=== PATIENT | female | born 1930 | race Two or more races ===

== ENCOUNTER 2016-11-30 14:55 | Inpatient (IN) | payer OTHER ==
[~2016-11-30] VITALS: Ht 152.4 cm; Wt 47.7 kg
[~2016-11-30 14:55] MED LIST: ADV100/50 INH; CLINDAMYCIN HC300 MG PO; COLACE100 MG PO; DETROL LA2 MG PO; LAC PO; LEV500 PO; MEGL; NAMENDA10 M2 PO; PEP20 PO; PRAVACHOL10 MG PO; PROVENTIL0.09 MG/A1 INH; SEROQUEL25 MG PO; SYN75 PO; ZOL50 PO
[2016-11-30 16:03] LABS: UA SPECIFIC GRAVITY 1.025 (1.005-1.035); microscopic required? YES; urine erythrocyte TRACE (NEGATIVE)
[2016-11-30 16:16] LABS: CALCIUM 9.4 mg/dL (8.5-10.1); CARBON DIOXIDE 29.7 mmol/L (21-32); CHLORIDE SERUM 102 mmol/L (98-107); CREATININE SERUM 0.9 mg/dL (0.6-1.0); GLUCOSE SERUM 97 mg/dL (74-106); POTASSIUM SERUM 4.2 mmol/L (3.5-5.1); SODIUM SERUM 139 mmol/L (136-145)
[2016-11-30] MEDS ORDERED: REM15 PO (16:20)
[2016-11-30] MEDS ORDERED: NATURE'S BLEND F1 MG PO (16:20)
[2016-11-30 16:21] LABS: ALBUMIN 3.9 g/dL (3.4-5.0); ALKALINE PHOSPHATASE 74 U/L (46-116); ALT/SGPT 16 U/L (14-59); AST/SGOT 23 U/L (15-37); BILIRUBIN TOTAL 0.37 mg/dL (0.20-1.00); TOTAL PROTEIN, SERUM 7.9 g/dL (6.4-8.2)
[2016-11-30] MEDS ORDERED: QVAR0.08 MG/Ac IH (16:21)
[2016-11-30] MEDS ORDERED: B-1100 MG PO (16:21)
[2016-11-30] MEDS ORDERED: PEPCID20 MG PO (16:21)
[2016-11-30] MEDS ORDERED: VENTOLIN H0.09 MG/A1 IH (16:22)
[2016-11-30] MEDS ORDERED: ZOLOFT100 MG PO (16:22)
[2016-11-30] MEDS ORDERED: XANAX0.25 MG PO (16:22)
[2016-11-30 16:23] LABS: BASOPHIL % 1.7 % (0-2); PLATELET COUNT 292 x10^3mcL (130-400)
[2016-11-30] MEDS ORDERED: APAP500 MG PO (16:23)
[2016-11-30 16:58] LABS: RED CELL DISTRIBUTION WIDTH 14.8 % (11.5-14.5)
[2016-11-30 18:40] VITALS: BP 188/90
[2016-11-30 20:07] VITALS: BP 169/80
[2016-12-01 05:27] VITALS: BP 154/80
[2016-12-01 06:00] VITALS: BP 154/80
[2016-12-01 09:16] VITALS: BP 154/80
== END 2016-12-01 18:49 | disposition home or self-care (01) | DRG 133 ==
LOC: ED 14:55 → MU 17:30
PROVIDERS: Emergency Medicine; ADMIT Internal Medicine Pulmonary Disease
DX: J96.11 Chronic respiratory failure with hypoxia (principal); N39.0 Urinary tract infection, site not specified; F03.90 Unspecified dementia, unspecified severity, without behavioral disturbance, psychotic disturbance, mood disturbance, and anxiety; J44.9 Chronic obstructive pulmonary disease, unspecified; E03.9 Hypothyroidism, unspecified; F32.9 Major depressive disorder, single episode, unspecified; Z99.81 Dependence on supplemental oxygen
CPT/HCPCS: 36600; 83880; J0696; J1650; J2930; J7040; J7613; J7644

== ENCOUNTER 2017-04-29 13:57 | Emergency (ER) | payer OTHER ==
[~2017-04-29] VITALS: Ht 132.1 cm; Wt 41.7 kg
[~2017-04-29 13:57] MED LIST changes: +APAP500 MG PO; +B-1100 MG PO; +NATURE'S BLEND F1 MG PO; +PEPCID20 MG PO; +QVAR0.08 MG/Ac IH; +REM15 PO; +VENTOLIN H0.09 MG/A1 IH; +XANAX0.25 MG PO; +ZOLOFT100 MG PO
[2017-04-29 16:17] LABS: UA SPECIFIC GRAVITY 1.015 (1.005-1.035); microscopic required? YES; urine erythrocyte NEGATIVE (NEGATIVE)
[2017-04-29 17:27] LABS: BASOPHIL % 0.3 % (0-2); PLATELET COUNT 225 x10^3mcL (130-400)
[2017-04-29 17:28] LABS: RED CELL DISTRIBUTION WIDTH 15.1 % (11.5-14.5)
[2017-04-29 17:47] LABS: CARBON DIOXIDE 27.2 mmol/L (21-32); CHLORIDE SERUM 105 mmol/L (98-107); CREATININE SERUM 1.6 mg/dL (0.6-1.0); GLUCOSE SERUM 92 mg/dL (74-106); POTASSIUM SERUM 4.2 mmol/L (3.5-5.1); SODIUM SERUM 142 mmol/L (136-145)
[2017-04-29 17:48] LABS: T3 TOTAL 0.59 ng/mL
[2017-04-29 17:58] LABS: ALBUMIN 3.7 g/dL (3.4-5.0); ALKALINE PHOSPHATASE 72 U/L (46-116); ALT/SGPT 12 U/L (14-59); AST/SGOT 21 U/L (15-37); BILIRUBIN TOTAL 0.5 mg/dL (0.20-1.00); C REACTIVE PROTEIN 1.3 mg/dL (<=0.9); TOTAL PROTEIN, SERUM 7.7 g/dL (6.4-8.2)
[2017-04-29 18:19] LABS: FREE T4 1.13 ng/dL (0.76-1.46); FREE THYROXINE INDEX 2.7 ug/dL (1.4-4.5)
[2017-04-29 18:21] LABS: CK-MB 1.8 ng/mL (0-3.6)
[2017-04-29 18:48] LABS: ERYTHROCYTE SED RATE 29 mm/hr (0-30)
[2017-04-29 20:24] VITALS: BP 184/92
== END 2017-04-29 20:24 | disposition home or self-care (01) ==
LOC: ED 13:57
PROVIDERS: Specialist
DX: N39.0 Urinary tract infection, site not specified (principal); K59.00 Constipation, unspecified; J44.9 Chronic obstructive pulmonary disease, unspecified; F03.90 Unspecified dementia, unspecified severity, without behavioral disturbance, psychotic disturbance, mood disturbance, and anxiety
CPT/HCPCS: 36600; 83880; 84439; J0696

== ENCOUNTER 2017-05-13 16:15 | Emergency (ER) | payer OTHER ==
[2017-05-13 17:21] LABS: microscopic required? NO
[2017-05-13 17:28] LABS: BASOPHIL % 0.4 % (0-2); PLATELET COUNT 321 x10^3mcL (130-400)
[2017-05-13 17:29] LABS: UA SPECIFIC GRAVITY 1.025 (1.005-1.035); urine erythrocyte NEGATIVE (NEGATIVE)
[2017-05-13 17:30] LABS: RED CELL DISTRIBUTION WIDTH 15.5 % (11.5-14.5)
[2017-05-13 17:34] LABS: CALCIUM 9.4 mg/dL (8.5-10.1); CARBON DIOXIDE 31.6 mmol/L (21-32); CHLORIDE SERUM 103 mmol/L (98-107); CREATININE SERUM 1.1 mg/dL (0.6-1.0); GLUCOSE SERUM 114 mg/dL (74-106); POTASSIUM SERUM 3.9 mmol/L (3.5-5.1); SODIUM SERUM 138 mmol/L (136-145)
[2017-05-13 17:39] LABS: ALBUMIN 3.6 g/dL (3.4-5.0); ALKALINE PHOSPHATASE 67 U/L (46-116); ALT/SGPT 15 U/L (14-59); AST/SGOT 20 U/L (15-37); BILIRUBIN TOTAL 0.28 mg/dL (0.20-1.00); LIPASE 145 IU/L (73-393); TOTAL PROTEIN, SERUM 7.5 g/dL (6.4-8.2)
[2017-05-13 19:17] VITALS: BP 140/76
== END 2017-05-13 19:17 | disposition home or self-care (01) ==
LOC: ED 16:15
PROVIDERS: Emergency Medicine
DX: R10.12 Left upper quadrant pain (principal); E86.0 Dehydration; F03.90 Unspecified dementia, unspecified severity, without behavioral disturbance, psychotic disturbance, mood disturbance, and anxiety; J44.9 Chronic obstructive pulmonary disease, unspecified; K59.00 Constipation, unspecified
CPT/HCPCS: 36415

== ENCOUNTER 2018-12-04 18:34 | Emergency (ER) | payer OTHER ==
[~2018-12-04] VITALS: Ht 127 cm; Wt 42.6 kg
[2018-12-04 18:42] VITALS: Ht 127 cm; Wt 42.6 kg
[2018-12-04 20:43] VITALS: BP 128/54
[2018-12-04 20:46] LABS: microscopic required? NO
[2018-12-04 20:46] LABS: CARBON DIOXIDE 27.1 mmol/L (21-32); CHLORIDE SERUM 105 mmol/L (98-107); GLUCOSE SERUM 141 mg/dL (74-106); SODIUM SERUM 140 mmol/L (136-145)
[2018-12-04 20:51] LABS: ALBUMIN 3.8 g/dL (3.4-5.0); ALKALINE PHOSPHATASE 81 U/L (46-116); ALT/SGPT 21 U/L (14-59); AST/SGOT 23 U/L (15-37); BILIRUBIN TOTAL 0.29 mg/dL (0.20-1.00); TOTAL PROTEIN, SERUM 7.3 g/dL (6.4-8.2)
[2018-12-04 21:00] LABS: UA SPECIFIC GRAVITY 1.025 (1.005-1.035); urine erythrocyte NEGATIVE (NEGATIVE)
[2018-12-04 21:03] LABS: CK-MB 1.4 ng/mL (0-3.6)
[2018-12-04 21:11] LABS: BASOPHIL % 0.6 % (0-2); PLATELET COUNT 264 x10^3mcL (130-400); RED CELL DISTRIBUTION WIDTH 14.3 % (11.5-14.5)
== END 2018-12-04 22:22 | disposition home or self-care (01) ==
LOC: ED 18:34
PROVIDERS: Emergency Medicine
DX: R45.1 Restlessness and agitation (principal); F03.90 Unspecified dementia, unspecified severity, without behavioral disturbance, psychotic disturbance, mood disturbance, and anxiety; E86.0 Dehydration; J45.909 Unspecified asthma, uncomplicated; J44.9 Chronic obstructive pulmonary disease, unspecified; E07.9 Disorder of thyroid, unspecified
CPT/HCPCS: J7030; J7620; J7633; Q0092

== ENCOUNTER 2018-12-29 14:27 | Emergency (ER) | payer OTHER ==
[~2018-12-29] VITALS: Ht 144.8 cm; Wt 43.5 kg
[2018-12-29 15:18] VITALS: Ht 144.8 cm; Wt 43.5 kg
[2018-12-29 20:00] VITALS: BP 183/112
== END 2018-12-29 20:00 | disposition home or self-care (01) ==
LOC: ED 14:27
DX: F03.90 Unspecified dementia, unspecified severity, without behavioral disturbance, psychotic disturbance, mood disturbance, and anxiety (principal); M15.0 Primary generalized (osteo)arthritis; T43.505A Adverse effect of unspecified antipsychotics and neuroleptics, initial encounter; Y92.89 Other specified places as the place of occurrence of the external cause
CPT/HCPCS: J1885; J2060; Q0092

== ENCOUNTER 2019-04-26 11:58 | Emergency (ER) | payer OTHER ==
[~2019-04-26] VITALS: Ht 144.8 cm; Wt 40.8 kg
[2019-04-26 12:34] VITALS: Ht 144.8 cm; Wt 40.8 kg
[2019-04-26 13:22] LABS: microscopic required? NO
[2019-04-26 13:27] LABS: BASOPHIL % 0.7 % (0-2); PLATELET COUNT 295 x10^3mcL (130-400); RED CELL DISTRIBUTION WIDTH 14.4 % (11.5-14.5)
[2019-04-26 13:33] LABS: UA SPECIFIC GRAVITY 1.015 (1.005-1.035); urine erythrocyte NEGATIVE (NEGATIVE)
[2019-04-26 13:40] LABS: CALCIUM 8.9 mg/dL (8.5-10.1); CARBON DIOXIDE 30.5 mmol/L (21-32); CHLORIDE SERUM 106 mmol/L (98-107); GLUCOSE SERUM 96 mg/dL (74-106); POTASSIUM SERUM 4.5 mmol/L (3.5-5.1); SODIUM SERUM 142 mmol/L (136-145)
[2019-04-26 13:44] LABS: ALBUMIN 3.5 g/dL (3.4-5.0); ALKALINE PHOSPHATASE 105 U/L (46-116); ALT/SGPT 13 U/L (14-59); AMYLASE 71 U/L (25-115); AST/SGOT 23 U/L (15-37); BILIRUBIN TOTAL 0.4 mg/dL (0.20-1.00); LIPASE 103 IU/L (73-393); TOTAL PROTEIN, SERUM 7.2 g/dL (6.4-8.2)
[2019-04-26 16:34] VITALS: BP 143/62
== END 2019-04-26 16:34 | disposition home or self-care (01) ==
LOC: ED 11:58
PROVIDERS: Emergency Medicine
DX: K59.00 Constipation, unspecified (principal); R10.32 Left lower quadrant pain; J44.9 Chronic obstructive pulmonary disease, unspecified; F03.90 Unspecified dementia, unspecified severity, without behavioral disturbance, psychotic disturbance, mood disturbance, and anxiety; I25.2 Old myocardial infarction
CPT/HCPCS: 36415